=== PATIENT | female | born 1940 | race Caucasian/White ===

== ENCOUNTER → 2017-12-26 08:28 | Outpatient (CLI) | payer MEDICARE ==
[2009-10-16 08:20] VITALS: BMI 40.6
== END | disposition home or self-care (01) ==
LOC: D.MRI 08:28
DX: M54.16 Radiculopathy, lumbar region (principal)

== ENCOUNTER → 2019-05-10 22:30 | Outpatient (CLI) | payer MEDICARE ==
[2009-10-16 08:20] VITALS: BMI 40.6
== END | disposition home or self-care (01) ==
LOC: D.MAMMO 04-27 10:00
PROVIDERS: ATTEND Nurse Practitioner Family
DX: Z12.31 Encounter for screening mammogram for malignant neoplasm of breast (principal)

== ENCOUNTER 2020-11-27 16:30 | Outpatient (CLI) | payer MEDICARE ==
[2009-10-16 08:20] VITALS: BMI 40.6
== END 2020-11-27 23:59 | disposition home or self-care (01) ==
LOC: D.MAMMO 16:30
PROVIDERS: ATTEND Family Medicine
DX: Z12.31 Encounter for screening mammogram for malignant neoplasm of breast (principal)